=== PATIENT | female | born 1960 | race Caucasian/White ===

== ENCOUNTER 2020-11-28 21:12 | Inpatient (IN) | payer OTHER ==
[2020-11-28 22:52] LABS: Absolute Lymphocytes (CBC) 0.7 K/uL (0.7-4.9); Basophils % 0.2 % (0-1.3); Hematocrit 32.4 % (36.0-45.0); Lymphocytes % 3.1 % (15.3-44.8); RBC Red Blood Cell Count 3.56 M/uL (3.86-4.86)
[2020-11-28 23:00] LABS: Protime INR 1.37
[2020-11-28 23:15] LABS: ALT/SGPT 15 U/L (12-78); AST/SGOT 15 U/L (15-37); Alkaline Phosphatase 98 U/L (45-117); BUN Blood Urea Nitrogen 13 mg/dL (7-18); Bicarbonate 37 mmol/L (21-32); Bilirubin Direct 0.1 mg/dL (0-0.2); Bilirubin Total 0.3 mg/dL (0.2-1.0); Glucose Level 169 mg/dL (74-106); NT PRO-BNP 998 pg/mL (<125); Potassium 4.1 mmol/L (3.5-5.1); Protein, Total 7.7 g/dL (6.4-8.2); Sodium Level 133 mmol/L (136-145); Troponin (Emerg Dept Use Only) 0.02 ng/mL (0.0-0.045)
[2020-11-28] MEDS ORDERED: NA CHLORIDE 0.9% 1,000 ML ONE (23:44)
[2020-11-28] MEDS ORDERED: Levofloxacin 750mg IV 750 MG/150 ML BAG IV ONE (23:44)
[2020-11-28] MEDS ORDERED: CEFTRIAXONE/SWI 1gm 1 GM/10 ML SYR ONE (23:44)
[2020-11-28 23:53] LABS: Blood Morphology Comment NOT SEEN (NOT SEEN); Platelet Estimate INCR
[2020-11-29] MEDS ORDERED: LORazepam 2 MG/ML VIAL ONE (00:57)
[2020-11-29] MEDS ORDERED: ONDANSETRON 4 MG/2 ML VIAL ONE (00:57)
[2020-11-29] MEDS ORDERED: NA CHLORIDE 0.9% 500 ML ONE (01:23)
[2020-11-29] MEDS ORDERED: METOPROLOL TARTRATE 5 MG/5 ML INJ IV ONE (01:39)
[2020-11-29] MEDS ORDERED: DIGOXIN 0.25 MG/ML AMP ONE (01:39)
[2020-11-29] MEDS ORDERED: PIPER/TAZO/NS 3.375gm 3.375 GM/100 ML BAG ONE (01:40)
[2020-11-29] MEDS ORDERED: METHYLPREDNISOLONE 125 MG INJ ONE (02:12)
[2020-11-29] MEDS ORDERED: HEPARIN/D5W 25,000 UNIT/500 ML BAG IV ONE (02:12)
[2020-11-29] MEDS ORDERED: LEVALBUTEROL 1.25 MG/3 ML NEB ONE (02:12)
[2020-11-29 02:18] LABS: Urine Blood Negative (Negative); Urine Glucose Negative (Negative); Urine Protein 2+ (Negative); Urine Specific Gravity >=1.030 (1.005-1.030); Urine pH 5.5 (5.0-7.0)
[2020-11-29] MEDS ORDERED: RSI MEDICATION KIT IV ONE (03:19)
[2020-11-29] MEDS ORDERED: MIDAZOLAM HCL 2 MG/2 ML INJ ONE ×4 (03:21→05:29)
--- NOTE | 2020-11-29 03:37 | ER ---
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 Chief complaint:. ak2 Coronavirus screen: Client denies travel out of the [place] in the last 14 days. Ebola Screen: Patient negative for fever greater than or equal to 101.5 degrees Fahrenheit, and additional compatible Ebola Virus Disease symptoms Patient denies exposure to infectious person. Patient denies travel to an Ebola-affected area in the 21 days before illness onset. No symptoms or risks identified at this time. Initial Sepsis Screen: Does the patient meet any 2 criteria? No. Patient's initial sepsis screen is negative. Does the patient have a suspected source of infection? No. Patient's initial sepsis screen is negative. Risk Assessment: Do you want to hurt yourself or someone else? Patient reports no desire to harm self or others. Onset of symptoms was October 25, 2020. 21:23 Method Of Arrival: Ambulatory mn2 21:23 Acuity: FACUNDO 3 ak2 Triage Assessment: 21:26 General: Appears. ak2 Historical: - Allergies: 21:26 Niacin; ak2 - PMHx: 11/29 08:23 COPD; Depression; Spinal stenosis; Breast cancer in 90s; sv - PSHx: 08:23 Baljeet mastectomy; sv - Immunization history:: Adult Immunizations up to date. - Social history:: Smoking status: Patient reports the use of cigarette tobacco products, unknown amount. Screenin/09 22:49 Abuse screen: Denies threats or abuse. Nutritional screening: Had unintentional weight ap3 loss of 10 pounds or more. Tuberculosis screening: No symptoms or risk factors identified. Fall Risk None identified. Assessment: 22:46 General: Appears comfortable, Behavior is calm, cooperative, appropriate for age. Pain: ap3 Denies pain. Neuro: Level of Consciousness is awake, alert, obeys commands, Oriented to person, place, time, situation, Weakness. Cardiovascular: Capillary refill < 3 seconds. Cardiovascular: Denies chest pain, shortness of breath. Respiratory: Airway is patent Respiratory effort is even, unlabored, Breath sounds are clear bilaterally. GI: No signs and/or symptoms were reported involving the gastrointestinal system. : No signs and/or symptoms were reported regarding the genitourinary system. EENT: fluid filled sacks are present under both eyes. Musculoskeletal: Swelling present in right and left lower extremities 3+ pitting. 11/29 00:10 Reassessment: Patient and/or family updated on plan of care and expected duration. Pain ap3 level reassessed. Patient is alert, oriented x 3, equal unlabored respirations, skin warm/dry/pink. Patients son and daughter in law are at the bedside. 01:00 Reassessment: pt rhythm jumping from 110-140's, repeat EKG, given to Dr. Mancuso. em 01:45 Reassessment: pt placed on BIPAP. em 03:10 Reassessment: pt moved to room 3, pt will be intubated, Dr. Mancuso at bedside. em 04:00 Reassessment: Pt remains intubated with no s/s of pain or distress noted. appears to be jb4 resting peacefully on vent. Respirations are even and symmetrical BALJEET. 05:00 Reassessment: Patient appears in no apparent distress at this time. No changes from jb4 previously documented assessment. Patient and/or family updated on plan of care and expected duration. Pain level reassessed. Vital Signs: 11/28 21:23 BP 112 / 90; Pulse 55; Resp 20; Temp 97.9; Pulse Ox 95% on R/A; Weight 36.29 kg; Height ak2 5 ft. 4 in. (162.56 cm); 22:50 BP 116 / 71; Pulse 90; Pulse Ox 94% on 2 lpm NC; ap3 11/29 00:08 BP 97 / 54 LA Supine (auto/); Pulse 109; Resp 21; Pulse Ox 94% on 2 lpm NC; ap3 01:11 BP 103 / 70; Pulse 155; Resp 22; Pulse Ox 95% on 2 lpm NC; em 01:42 BP 114 / 79; Pulse 110; Resp 21; Pulse Ox 96% on 2 lpm NC; em 02:30 BP 135 / 83; Pulse 110; Resp 23; Pulse Ox 94% on BiPAP; em 03:14 BP 114 / 75; Pulse 118; Resp 18 A; Pulse Ox 98% on BVM; em 03:24 BP 80 / 59; Pulse 101; Resp 22 A; Pulse Ox 100% on ETT ambu; em 03:30 BP 99 / 67; Pulse 101; Resp 18 A; Pulse Ox 94% on ETT vent; em 04:30 BP 82 / 58; Pulse 87; Resp 24; Pulse Ox 100% on 40% FiO2 ETT vent; jb4 05:30 BP 84 / 59; Pulse 84; Resp 18; Pulse Ox 100% on 40% FiO2 ETT vent; jb4 / 21:23 Body Mass Index 13.73 (36.29 kg, 162.56 cm) ak2 ED Course: 11/28 21:15 Patient arrived in ED. cf2 21:26 Triage completed. ak2 22:06 Any Fuentes, MIKE is Primary Nurse. ap3 22:12 Conrado Valencia PA is PHCP. jr8 22:12 Kem Mancuso MD is Attending Physician. jr8 22:36 XRAY Chest (1 view) In Process Unspecified. EDMS 22:46 Inserted saline lock: 20 gauge in right antecubital area, using aseptic technique. ap3 Blood collected. 22:49 Arm band placed on right wrist. EKG completed in triage. Results shown to MD. ap3 22:50 Patient has correct armband on for positive identification. Bed in low position. Call ap3 light in reach. Side rails up X2. Adult w/ patient. hall monitor on. Pulse ox on. NIBP on. Door closed. Noise minimized. 23:10 Nurse Practitioner and/or Physician Bookkeeping Machine Mechanic to see patient. ap3 23:[address] via stretcher. ap3 23:38 Patient moved back from CT. ap3 23:44 CT Chest Wo Con In Process Unspecified. EDMS 23:53 Inserted saline lock: 20 gauge in left antecubital area, using aseptic technique. Blood ap3 collected. 11/29 02:14 Smith cath inserted, using sterile technique, 18 Fr., by nj, balloon inflated, to ds4 gravity drainage, urine specimen collected. returned clear yellow urine. Patient tolerated well. 03:24 Assisted provider with intubation using 7.5 mm ETT via oral route. ET tube secured at em 22cm at the lips. Set up intubation tray. Intubated by Kem Mancuso MD Placement verified by CO2 detector w/ + color change, auscultating bilateral breath sounds, CXR, Patient tolerated well. 03:31 Abiodun Lemon DO is Hospitalizing Provider. alberto 04:00 Chest Single View XRAY In Process Unspecified. EDMS 04:01 Chest Single View XRAY In Process Unspecified. EDMS 05:12 Patient admitted, IV remains in place. jb4 05:15 NGT: inserted 14 Fr. other OGT. ad5 06:00 Assisted provider with central line placement. Set up central line tray. Triple lumen jb4 line placed in right femoral. Line placed by Kem Mancuso MD Placement verified by blood return, Dressed with Tegaderm, Patient tolerated well. 08:14 pt accepted in transfer to [facility] by dr Jacob, admin approval given by ave Gaviria. Administered Medications: 11/28 23:54 Drug: Rocephin (cefTRIAXone) 1 grams Route: IV; Rate: calculated rate; Site: right ap3 antecubital; 11/29 00:30 Follow up: Response: No adverse reaction; IV Status: Completed infusion; IV Intake: 10mlem 11/28 23:54 Drug: LevaQUIN (levofloxacin) 750 mg Volume: 150 ml; Route: IVPB; Infused Over: 90 ap3 mins; Site: right antecubital; 11/29 01:30 Follow up: Response: No adverse reaction; IV Status: Completed infusion; IV Intake: em 150ml 11/28 23:54 Drug: NS 0.9% 1000 ml Route: IV; Rate: 1000 ml; Site: right antecubital; ap3 11/29 01:30 Follow up: IV Status: Completed infusion; IV Intake: 1000ml em 00:43 Drug: Zofran (Ondansetron) 4 mg Route: IVP; Site: right antecubital; ap3 00:50 Follow up: Response: No adverse reaction em 00:44 Drug: Ativan (LORazepam) 0.5 mg Route: IVP; Site: right antecubital; ap3 00:50 Follow up: Response: No adverse reaction; Marked relief of symptoms; Anxiety decreased em 01:32 Drug: Digoxin 0.5 mg Route: IVP; Site: right antecubital; em 01:45 Follow up: Response: No adverse reaction; Cardiac rhythm changed em 01:40 Drug: Zosyn (piperacillin-tazobactam) 3.375 grams Route: IVPB; Infused Over: 60 mins; em Site: right antecubital; 02:30 Follow up: Response: No adverse reaction; IV Status: Completed infusion; IV Intake: em 100ml 01:40 Drug: NS 0.9% 1000 ml Route: IV; Rate: 125 ml/hr; Site: right antecubital; em 01:40 Drug: Pepcid (famotidine) 20 mg Route: IVP; Site: right antecubital; em 02:15 Follow up: Response: No adverse reaction em 02:05 Drug: Heparin (HI-Bolus with thrombolytic) - HEParin 60 units/kg {Co-Signature: lc1 em (Genevieve Myers).} Route: IVP; Site: left antecubital; 02:14 Follow up: Response: No adverse reaction em 02:06 Drug: Heparin (HI Drip) 12 units/kg/hr - (HEParin 23510 units, D5W 500 ml) em {Co-Signature: lc1 (Genevievenoah Cannonn).} Route: IV; Rate: calculated rate; Site: left antecubital; 07:28 Follow up: Response: No adverse reaction; IV Status: Infusion continued upon admission jb4 02:14 Drug: SOLU-Medrol (methylPrednisoLONE) 125 mg Route: IVP; Site: left antecubital; em 02:30 Follow up: Response: No adverse reaction em 02:17 Drug: Xopenex (levalbuterol) 2.5 mg Route: Inhalation; em 02:18 Not Given (Physician Discretion): Lopressor (metoprolol TARTRATE)) 25 mg PO once em 02:18 Drug: AtroVENT (ipratropium) Aerosol 0.5 mg Route: Inhalation; em 02:19 Not Given (Physician Discretion): Lopressor (metoprolol) 2.5 mg IVP once; Hold for SBP em <100 or HR <60. 02:19 Not Given (Physician Discretion): Lopressor (metoprolol) 2.5 mg IVP once; Hold for SBP em <100 or HR <60. 03:15 Drug: Versed (midazolam) 4 mg Route: IVP; Site: right antecubital; em 04:00 Follow up: Response: No adverse reaction; Marked relief of symptoms jb4 03:16 Drug: Etomidate 15 mg Route: IVP; Site: right antecubital; em 03:40 Follow up: Response: No adverse reaction; Marked relief of symptoms jb4 03:25 Drug: NS 0.9% 500 ml Route: IV; Rate: bolus; Site: right antecubital; jb4 04:30 Follow up: Response: No adverse reaction; IV Status: Completed infusion; IV Intake: jb4 500ml 03:34 Drug: Versed (midazolam) 2 mg Route: IVP; Site: right antecubital; jb4 04:00 Follow up: Response: No adverse reaction; Marked relief of symptoms jb4 04:33 Drug: Meropenem 1 grams Route: IV; Rate: per protocol; Site: left wrist; jb4 05:40 Follow up: Response: No adverse reaction; IV Status: Completed infusion; IV Intake: em 100ml 05:15 Drug: Versed (midazolam) 2 mg Route: IVP; Site: right antecubital; ad5 05:45 Follow up: Response: No adverse reaction; Marked relief of symptoms jb4 06:00 Drug: vancoMYCIN 20 mg/kg Route: IVPB; Site: left wrist; jb4 Intake: 00:30 IV: 10ml; Total: 10ml. em 01:30 IV: 1000ml; Total: 1010ml. em 01:30 IV: 150ml; Total: 1160ml. em 02:30 IV: 100ml; Total: 1260ml. em 04:20 IV: 10ml; Total: 1270ml. jb4 04:30 IV: 500ml; Total: 1770ml. jb4 05:00 IV: 1000ml; Total: 2770ml. jb4 05:40 IV: 100ml; Total: 2870ml. em Outcome: 03:36 Decision to Hospitalize by Provider. alberto 05:11 Admitted to ER Hold. Please see [facility] for further documentation. jb4 05:11 Condition: improved 05:11 Discharge instructions given to family, Instructed on the need for admit, Demonstrated understanding of instructions. 09:50 Patient left the ED. hb Signatures: Dispatcher [employer] EDSherrie Morris Stephanie, RN Kem Fonseca MD MD cha Munoz, Edgar, RN RN em Roszak, Josh, PA PA jr8 Kamran Partida ds4 Drea Maldonado RN RN Aman Tucker RN RN jb4 Any Fuentes RN RN ap3 Kojo Mueller [facility] Dorian Woods Anthony [facility] Genevieve yMers 1
--- NOTE | 2020-11-29 03:37 | EDPHYS ---
Physician Documentation [facility] Name: Antonietta Fay Age: 59 yrs Sex: Female : 1960 Arrival Date: 11/28/2020 Time: 21:15 Bed 3 Private MD: ED Physician Kem Mancuso HPI: 11/29 00:45 This 59 yrs old Female presents to ER via Ambulatory with complaints of Feet jr8 Swelling, Leg Swelling, Eye Swelling, ARM SWELLING, Breathing Difficulty, BODY PAIN, General Weakness. 00:45 Severity of symptoms: At their worst the symptoms were moderate in the emergency jr8 department the symptoms are unchanged. The patient has not experienced similar symptoms in the past. The patient has been recently seen by a physician:. Patient stated she has been battling a lung infection for about 2 months. Stated that she was started on Zithromax first and now Augmentin. Stated that she still is not getting better and now having increased shortness of breath, swelling, and weakness. Has also lost about 25 pounds over the past month. Historical: - Allergies: 11/28 21:26 Niacin; ak2 - PMHx: 11/29 08:23 COPD; Depression; Spinal stenosis; Breast cancer in 90s; sv - PSHx: 08:23 Baljeet mastectomy; sv - Immunization history:: Adult Immunizations up to date. - Social history:: Smoking status: Patient reports the use of cigarette tobacco products, unknown amount. ROS: 00:45 Abdomen/GI: Negative for abdominal pain, nausea, vomiting, diarrhea, and constipation, jr8 Back: Negative for injury and pain, MS/Extremity: Negative for injury and deformity, Skin: Negative for injury, rash, and discoloration, Neuro: Negative for headache, weakness, numbness, tingling, and seizure. 00:45 Constitutional: Positive for weight loss. 00:45 Eyes: Positive for edema. 00:45 Cardiovascular: Positive for edema. 00:45 Respiratory: Positive for cough, dyspnea on exertion, shortness of breath, wheezing. Exam: 00:45 ENT: Nares patent. No nasal discharge, no septal abnormalities noted. Tympanic jr8 membranes are normal and external auditory canals are clear. Oropharynx with no redness, swelling, or masses, exudates, or evidence of obstruction, uvula midline. Mucous membranes moist. Neck: Trachea midline, no thyromegaly or masses palpated, and no cervical lymphadenopathy. Supple, full range of motion without nuchal rigidity, or vertebral point tenderness. No Meningismus. 00:45 Abdomen/GI: Soft, non-tender, with normal bowel sounds. No distension or tympany. No guarding or rebound. No evidence of tenderness throughout. Back: No spinal tenderness. No costovertebral tenderness. Full range of motion. Skin: Warm, dry with normal turgor. Normal color with no rashes, no lesions, and no evidence of cellulitis. MS/ Extremity: Pulses equal, no cyanosis. Neurovascular intact. Full, normal range of motion. Neuro: Awake and alert, GCS 15, oriented to person, place, time, and situation. Motor strength 5/5 in all extremities. Sensory grossly intact. 00:45 Eyes: Periorbital structures: swelling, that is mild, bilaterally, Pupils: equal, round, and reactive to light and accomodation, Extraocular movements: intact throughout, Conjunctiva: normal. 00:45 Cardiovascular: Rate: tachycardic, Rhythm: regular, Pulses: Pulses are 2+ in right radial artery and left radial artery. Heart sounds: normal, normal S1and S2, no S3 or S4, no murmur, no rub, no gallop, Edema: pedal edema, that is moderate. 00:45 Respiratory: mild respiratory distress is noted, Respirations: labored breathing, that is mild, pursed lip breathing, that is mild, tachypnea, that is mild, Breath sounds: decreased breath sounds, that are mild, are scattered, rhonchi, that are mild, are heard diffusely. 01:22 ECG was reviewed by the Attending Physician. alberto Vital Signs: 11/28 21:23 BP 112 / 90; Pulse 55; Resp 20; Temp 97.9; Pulse Ox 95% on R/A; Weight 36.29 kg; Height ak2 5 ft. 4 in. (162.56 cm); 22:50 BP 116 / 71; Pulse 90; Pulse Ox 94% on 2 lpm NC; ap3 11/29 00:08 BP 97 / 54 LA Supine (auto/); Pulse 109; Resp 21; Pulse Ox 94% on 2 lpm NC; ap3 01:11 BP 103 / 70; Pulse 155; Resp 22; Pulse Ox 95% on 2 lpm NC; em 01:42 BP 114 / 79; Pulse 110; Resp 21; Pulse Ox 96% on 2 lpm NC; em 02:30 BP 135 / 83; Pulse 110; Resp 23; Pulse Ox 94% on BiPAP; em 03:14 BP 114 / 75; Pulse 118; Resp 18 A; Pulse Ox 98% on BVM; em 03:24 BP 80 / 59; Pulse 101; Resp 22 A; Pulse Ox 100% on ETT ambu; em 03:30 BP 99 / 67; Pulse 101; Resp 18 A; Pulse Ox 94% on ETT vent; em 04:30 BP 82 / 58; Pulse 87; Resp 24; Pulse Ox 100% on 40% FiO2 ETT vent; jb4 05:30 BP 84 / 59; Pulse 84; Resp 18; Pulse Ox 100% on 40% FiO2 ETT vent; jb4 11/28 21:23 Body Mass Index 13.73 (36.29 kg, 162.56 cm) ak2 Procedures: 03:29 Intubation: Ventilated with 100% NRB prior to procedure. Intubated orally using # 3 alberto Stacia blade with 7.5 mm ETT. was successful on first attempt. Ventilated with Ambu bag. Cricoid pressure applied during procedure. Tube secured with ETT ward at right side of mouth measured 22 cm at lip. 06:02 Central Line: the site was prepped with Betadine, a triple lumen catheter was inserted, alberto in the right femoral vein, in 1 attempts. placement was verified, by blood return, the site was dressed with Tegaderm, using sterile technique, the patient tolerated the procedure, well. MDM: 11/28 22:12 Patient medically screened. jr8 11/29 00:45 Data reviewed: vital signs, nurses notes, lab test result(s), EKG, radiologic studies, jr CT scan, plain films. Data interpreted: Pulse oximetry: on 4L(s) per nasal canula, is 94 %. Interpretation: acceptable. Counseling: I had a detailed discussion with the patient and/or guardian regarding: the historical points, exam findings, and any diagnostic results supporting the discharge/admit diagnosis, lab results, radiology results, the need to transfer to another facility, for higher level of care. ED course: Patient has moderate pericardial effusion present on CT. Also has loculated effusion with what appears to be obstructive pneumonia secondary to possible lung mass. No Echo available at this time and no pulmonary to do vats procedure if needed. Will attempt to transfer patient for higher level of care. 01:00 Transition of care: After a detail discussion of the patient's case, care is jr8 transferred to Kem Mancuso MD. 11/28 22:12 Order name: Basic Metabolic Panel; Complete Time: 23:16 [facility] 11/28 22:12 Order name: CBC with Diff; Complete Time: 23:59 [facility] 11/28 22:12 Order name: LFT's; Complete Time: 23:16 [facility] 11/28 22:12 Order name: Magnesium; Complete Time: 23:16 [facility] 11/28 22:12 Order name: NT PRO-BNP; Complete Time: 23:16 [facility] 11/28 22:12 Order name: PT-INR; Complete Time: 23:15 [facility] 11/28 22:12 Order name: Troponin (emerg Dept Use Only); Complete Time: 23:16 [facility] 11/28 23:05 Order name: Manual Differential; Complete Time: 23:59 [facility] 11/28 23:16 Order name: Blood Culture Adult (2) [facility] 11/28 23:16 Order name: Procal; Complete Time: 01:17 [facility] 11/28 23:16 Order name: Lactate; Complete Time: 00:56 [facility] 11/29 01:19 Order name: ABG [facility] 11/29 01:21 Order name: TSH; Complete Time: 02:45 [facility] 11/29 01:46 Order name: SARS-COV-2 RT PCR; Complete Time: 02:45 [facility] 11/29 02:17 Order name: Urine Dipstick-Ancillary; Complete Time: 02:45 [facility] 11/29 02:20 Order name: Lactate Sepsis 2 HR Follow-up; Complete Time: 02:45 [facility] 11/29 03:21 Order name: ABG [facility] 11/29 03:22 Order name: ABG Arterial Blood Gas [facility] 11/29 03:28 Order name: Sputum Culture [facility] 11/29 05:38 Order name: ABG Arterial Blood Gas; Complete Time: 13:03 [facility] 11/29 05:55 Order name: CBC with Automated Diff; Complete Time: 13:03 [facility] 11/29 06:10 Order name: Comprehensive Metabolic Panel; Complete Time: 13:03 [facility] 11/29 06:10 Order name: Lipid Profile; Complete Time: 13:03 [facility] 11/29 06:10 Order name: C-Reactive Protein; Complete Time: 13:03 [facility] 11/29 06:10 Order name: T4 Free; Complete Time: 13:03 [facility] 11/29 06:10 Order name: Magnesium; Complete Time: 13:03 [facility] 11/29 06:10 Order name: Thyroid Stimulating Hormone; Complete Time: 13:03 [facility] 11/29 06:13 Order name: Procalcitonin; Complete Time: 13:03 [facility] 11/29 06:13 Order name: Ptt, Activated jb4 11/28 22:12 Order name: XRAY Chest (1 view); Complete Time: 13:03 [facility] 11/28 22:12 Order name: EKG; Complete Time: 22:13 [facility] 11/28 23:17 Order name: CT Chest Wo Con [facility] 11/29 01:49 Order name: BIPAP alberto 11/29 03:21 Order name: Chest Single View XRAY; Complete Time: 13:03 alberto 11/29 03:43 Order name: Chest Single View XRAY; Complete Time: 13:03 [facility] 11/29 06:54 Order name: PTT, Activated Partial Thromb; Complete Time: 13:03 [facility] 11/29 07:40 Order name: CBC Smear Scan; Complete Time: 13:03 [facility] 11/28 22:12 Order name: Cardiac monitoring; Complete Time: 23:10 [facility] 11/28 22:12 Order name: EKG - Nurse/Tech; Complete Time: 23:09 [facility] 11/28 22:12 Order name: IV Saline Lock; Complete Time: 22:46 [facility] 11/28 22:12 Order name: Labs collected and sent; Complete Time: 22:46 [facility] 11/28 22:12 Order name: O2 Per Protocol; Complete Time: 22:33 [facility] 11/28 22:12 Order name: O2 Sat Monitoring; Complete Time: 22:33 [facility] 11/28 22:25 Order name: Urine Dipstick-Ancillary (obtain specimen); Complete Time: 02:17 [facility] 11/29 01:53 Order name: Smith; Complete Time: 02:17 [facility] EC:22 Rate is 155 beats/min. Rhythm is irregularly irregular. QRS [place] is Normal. NC interval alberto is normal. QRS interval is normal. QT interval is normal. No Q waves. T waves are Normal. No ST changes noted. Clinical impression: Atrial Flutter and No evidence of ischemia. Interpreted by me. Reviewed by me. Administered Medications: 11/28 23:54 Drug: Rocephin (cefTRIAXone) 1 grams Route: IV; Rate: calculated rate; Site: right ap3 antecubital; 11/29 00:30 Follow up: Response: No adverse reaction; IV Status: Completed infusion; IV Intake: 10mlem 11/28 23:54 Drug: LevaQUIN (levofloxacin) 750 mg Volume: 150 ml; Route: IVPB; Infused Over: 90 ap3 mins; Site: right antecubital; 11/29 01:30 Follow up: Response: No adverse reaction; IV Status: Completed infusion; IV Intake: em 150ml 11/28 23:54 Drug: NS 0.9% 1000 ml Route: IV; Rate: 1000 ml; Site: right antecubital; ap3 11/29 01:30 Follow up: IV Status: Completed infusion; IV Intake: 1000ml em 00:43 Drug: Zofran (Ondansetron) 4 mg Route: IVP; Site: right antecubital; ap3 00:50 Follow up: Response: No adverse reaction em 00:44 Drug: Ativan (LORazepam) 0.5 mg Route: IVP; Site: right antecubital; ap3 00:50 Follow up: Response: No adverse reaction; Marked relief of symptoms; Anxiety decreased em 01:32 Drug: Digoxin 0.5 mg Route: IVP; Site: right antecubital; em 01:45 Follow up: Response: No adverse reaction; Cardiac rhythm changed em 01:40 Drug: Zosyn (piperacillin-tazobactam) 3.375 grams Route: IVPB; Infused Over: 60 mins; em Site: right antecubital; 02:30 Follow up: Response: No adverse reaction; IV Status: Completed infusion; IV Intake: em 100ml 01:40 Drug: NS 0.9% 1000 ml Route: IV; Rate: 125 ml/hr; Site: right antecubital; em 01:40 Drug: Pepcid (famotidine) 20 mg Route: IVP; Site: right antecubital; em 02:15 Follow up: Response: No adverse reaction em 02:05 Drug: Heparin (ND-Bolus with thrombolytic) - HEParin 60 units/kg {Co-Signature: lc1 em (Genevieve Myers).} Route: IVP; Site: left antecubital; 02:14 Follow up: Response: No adverse reaction em 02:06 Drug: Heparin (ND Drip) 12 units/kg/hr - (HEParin 83439 units, D5W 500 ml) em {Co-Signature: lc1 (Genevieve Myers).} Route: IV; Rate: calculated rate; Site: left antecubital; 07:28 Follow up: Response: No adverse reaction; IV Status: Infusion continued upon admission jb4 02:14 Drug: SOLU-Medrol (methylPrednisoLONE) 125 mg Route: IVP; Site: left antecubital; em 02:30 Follow up: Response: No adverse reaction em 02:17 Drug: Xopenex (levalbuterol) 2.5 mg Route: Inhalation; em 02:18 Not Given (Physician Discretion): Lopressor (metoprolol TARTRATE)) 25 mg PO once em 02:18 Drug: AtroVENT (ipratropium) Aerosol 0.5 mg Route: Inhalation; em 02:19 Not Given (Physician Discretion): Lopressor (metoprolol) 2.5 mg IVP once; Hold for SBP em <100 or HR <60. 02:19 Not Given (Physician Discretion): Lopressor (metoprolol) 2.5 mg IVP once; Hold for SBP em <100 or HR <60. 03:15 Drug: Versed (midazolam) 4 mg Route: IVP; Site: right antecubital; em 04:00 Follow up: Response: No adverse reaction; Marked relief of symptoms jb4 03:16 Drug: Etomidate 15 mg Route: IVP; Site: right antecubital; em 03:40 Follow up: Response: No adverse reaction; Marked relief of symptoms jb4 03:25 Drug: NS 0.9% 500 ml Route: IV; Rate: bolus; Site: right antecubital; jb4 04:30 Follow up: Response: No adverse reaction; IV Status: Completed infusion; IV Intake: jb4 500ml 03:34 Drug: Versed (midazolam) 2 mg Route: IVP; Site: right antecubital; jb4 04:00 Follow up: Response: No adverse reaction; Marked relief of symptoms jb4 04:33 Drug: Meropenem 1 grams Route: IV; Rate: per protocol; Site: left wrist; jb4 05:40 Follow up: Response: No adverse reaction; IV Status: Completed infusion; IV Intake: em 100ml 05:15 Drug: Versed (midazolam) 2 mg Route: IVP; Site: right antecubital; ad5 05:45 Follow up: Response: No adverse reaction; Marked relief of symptoms jb4 06:00 Drug: vancoMYCIN 20 mg/kg Route: IVPB; Site: left wrist; jb4 Disposition: 03:28 Co-signature as Attending Physician, Kem Mancuso MD I agree with the assessment and alberto plan of care. Disposition: 11/29/20 03:36 Hospitalization ordered by Abiodun Lemon for Inpatient Admission. 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 - Bed requested for [facility] ER HOLD. - Status is Inpatient Admission. hb - Condition is Serious. - Problem is new. - Symptoms have improved. Signatures: Dispatcher [employer] [facility] Maddie Bernard, Kem Fonseca RN, MD MD cha Munoz, Edgar RN MIKE Conrado Valencia PA PA jr8 Ciaran Trevino, MANAGEMENT TRAINEE-C MANAGEMENT TRAINEE-Cla1 Alicja Renteria RN RN tl1 Drea Maldonado RN RN Aman Tucker RN RN jb4 Prokisch, Amanda RN MIKE melendez3 Dorian Woods Anthony ak2 Genevieve Myers lc1 Corrections: (The following items were deleted from the chart) 11/28 23:39 23:23 CORONAVIRUS+MR.LAB.ILIANAZ ordered. [facility] 11/29 04:26 03:36 Hospitalization Ordered by Abiodun Lemon DO for Inpatient Admission. 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 Bed requested for Intensive Care Unit. Status is Inpatient Admission. Condition is Serious. Problem is new. Symptoms have improved. alberto 09:50 04:26 11/29/2020 03:36 Hospitalization Ordered by Abiodun Lemon DO for Inpatient hb Admission. 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 Bed requested for [facility] ER HOLD. Status is Inpatient Admission. Condition is Serious. Problem is new. Symptoms have improved. tl1
[2020-11-29] MEDS ORDERED: NA CHLORIDE 0.9% 1,000 ML ONE ×2 (03:38→09:27)
[2020-11-29] MEDS ORDERED: NA CHLORIDE 0.9% 50 ML ONE (04:00)
[2020-11-29 04:14] LABS: Blood Gas Oxyhemoglobin 83.4 % (94-97)
[2020-11-29] MEDS ORDERED: NA CHLORIDE 0.9% 250 ML ONE (04:15)
[2020-11-29] MEDS ORDERED: VANCOMYCIN 1 GM/VIAL ONE (04:15)
[2020-11-29] MEDS ORDERED: MEROPENEM ONE (04:23)
--- NOTE | 2020-11-29 04:49 | P.HP ---
Certification for Inpatient Patient admitted to: Inpatient With expected LOS: >2 Midnights Patient will require the following post-hospital care: None Practitioner: I am a practitioner with admitting privileges, knowledge of patient current condition, hospital course, and medical plan of care. Services: Services provided to patient in accordance with Admission requirements found in Title 42 Section 412.3 of the Code of Federal Regulations Patient History Date of Service: 11/29/20 Primary Care Provider: None Reason for admission: Respiratory failure History of Present Illness: 59-year-old female with history of suspected COPD, allergies, depression, spinal stenosis presents emergency department for generalized we akness, swelling in the extremities, shortness of breath. Patient also mildly confused upon arrival to the emergency department, patient evaluated in the emergency department, initial labs significant for white blood cell count 22.5 with left shift hemoglobin 10.7 hematocrit 32.5, platelets 442 2% bands chemistry demonstrates sodium 133 chloride 93, CO2 37 creatinine 0.47 glucose 169 initial lactic acid 2.6 down to 1.4 after fluids pro calcitonin 5.11. Urinalysis negative for signs of infection. Chest x-ray done demonstrates suspected postobstructive right-sided pneumonia, CT chest performed went right suprahilar consolidation with probable right hilar and superior mediastinal adenopathy which could be infectious or neoplastic and is not visualized well due to lack of IV contrast, neoplasms favored given the presence of multiple left lung pulmonary nodules measuring up to 8 mm. Cystic change/cavitation throughout the right upper lung which favor pulmonary necrosis. Large right ple ural effusion with areas of loculation, severe emphysema present throughout the many lungs, moderate sized pericardial effusion also noted. ABG was obtained which demonstrated hypercapnia with CO2 of 100 in mild acidosis with pH 7.19, patient was placed on BiPAP but repeat ABG demonstrated elevation of CA to the 114 and patient was lethargic, confused. Patient was intubated for acute hypoxic, hypercapnic respiratory failure. Transfer was initiated, [facility], [facility], [facility], [facility] all declined due to ICU saturation. Attempted transferred to all satellite facilities related to above hospital systems and was declined again due to capacity. Case was then discussed with pulmonology recommended initiation of IV antibiotics with vancomycin/meropenem and admission to the intensive care unit for further evaluation and management. When I saw the patient in the emergency department she was intubated, on the ventilator and sedated. Son and daughter at bedside reports patient had been feeling unwell over the course of the last 4 months and had recently moved back from [place], has not seen a physician in only does virtual doctor visits, was prescribed medication for pneumonia in the past month or so but again was not ever seen in person. Patient family does report patient smokes about 2 packs of cigarettes daily for the past 40 years. Allergies niacin Allergy (Verified 11/29/20 05:12) Hives - Past Medical/Surgical History -: COPD -: Depression -: Spinal stenosis -: Breast cancer in the 90s -: Bilateral mastectomy Psychosocial/ Personal History: Patient is disabled secondary to spinal stenosis, lives alone - Family History Father -: Other (see notes) (Lupus) Sister Notes: Lupus - Social History Smoking Status: Heavy Tobacco smoker (>10 cigarettes/day) Smoking therapy provided: Yes Alcohol use: No CD- Drugs: No Caffeine use: Yes Place of Residence: Home Review of Systems is unable to be obtained Physical Examination - Physical Exam General: Unresponsive, Other (Intubated-on ventilator-sedated) HEENT: Atraumatic, Normocephalic, Other (Some periorbital edema noted) Neck: Supple Respiratory: Crackles/rales (Right-sided), Rhonchi/gurgles Cardiovascular: No edema, Normal S1 S2, No murmurs, Irregular heart rate/rhythm (AFib, rate controlled) Capillary refill: <2 Seconds Gastrointestinal: Normal bowel sounds, No tenderness, No masses, No rebound Musculoskeletal: No contractures, No erythema, No tenderness Integumentary: No tenderness/swelling, No erythema, No warmth Neurological: Other (Intubated, sedated, unresponsive on ventilator at this time, prior to admission patient was awake, alert, moving all 4 extremities and following commands) - Studies Laboratory Data (last 24 hrs) 11/28/20 22:42: PT 15.8 H, INR 1.37 11/28/20 22:42: WBC 22.50 H*, Hgb 10.7 L, Hct 32.4 L, Plt Count 442 H 11/28/20 22:42: Sodium 133 L, Potassium 4.1, BUN 13, Creatinine 0.47 L, Glucose 169 H, Magnesium 2.0, Total Bilirubin 0.3, AST 15, ALT 15, Alkaline Phosphatase 98 Assessment and Plan - Plan Assessment Acute hypoxic hypercapnic respiratory failure secondary to large right loculated pleural effusion and cystic/cavitational changes favoring pulmonary necrosis- suspected malignancy with history of COPD and heavy tobacco abuse New onset atrial fibrillation/flutter Moderate pericardial effusion Plan Acute hypoxic hypercapnic respiratory failure secondary to large right loculated pleural effusion and cystic/cavitational changes favoring pulmonary necrosis- suspected malignancy with history of COPD and heavy tobacco abuse: Have attempted transferred to all tertiary centers within the area, all have declined due to lack of ICU capacity, this was discussed at length with patient's daughter and son who are present in exam room and understanding of current situation. Will admit to the ICU, case was discussed with pulmonology will continue with IV meropenem/vancomycin, ventilator protocol, repeat ABG with morning lab. Continue with heparin for DVT prophylaxis, patient without any known history of pulmonary malignancy but this is likely given patient's heavy smoking of 2 packs per day over the course of the last [address] findings. Appreciate further input from pulmonology, continue heparin drip for DVT prophylaxis. New onset atrial fibrillation/flutter: Patient initiated on heparin drip given new onset atrial fibrillation/flutter that occurred in the emergency department, patient was given metoprolol/digoxin in the emergency department and is in paroxysmal atrial fibrillation but is rate controlled at this time. Cardiology consulted for additional assistance in managing atrial fibrillation/flutter in addition to the moderate pericardial effusion. Echocardiogram/thyroid panel ordered. Moderate pericardial effusion: Echocardiogram ordered, appreciate further input from cardiology, likely malignant in nature. Discharge Plan: Home Plan to discharge in: Greater than 2 days - Advance Directives Does patient have a Living Will: No Does patient have a Durable POA for Healthcare: No - Code Status/Comfort Care Code Status Assessed: Yes (Full code) Critical Care: No Time Spent Managing Pts Care (In Minutes): 55
[2020-11-29] MEDS ORDERED: FENTANYL CITR 100 MCG/2 ML IV PRN (05:13)
[2020-11-29] MEDS ORDERED: NA CHLORIDE 0.9% 250 ML IV PRN (05:13)
[2020-11-29] MEDS ORDERED: HALOPERIDOL LACT 5 MG/ML INJ IV PRN (05:13)
[2020-11-29] MEDS ORDERED: HEPARIN/D5W 25,000 UNIT/500 ML BAG IV SCH (05:13)
[2020-11-29] MEDS ORDERED: NA CHLORIDE 0.9% 1,000 ML IV SCH (05:13)
[2020-11-29] MEDS ORDERED: ONDANSETRON 4 MG/2 ML VIAL IV PRN (05:13)
[2020-11-29] MEDS ORDERED: ACETAMINOPHEN 650MG/RECT SUPP PR PRN (05:13)
[2020-11-29] MEDS ORDERED: MIDAZOLAM HCL 100 MG in NA CHLORIDE 0.9% 80 ML IV PRN (05:13)
[2020-11-29] MEDS ORDERED: NOREPINEPHRINE 4 MG in D5W 250 ML IV PRN (05:13)
[2020-11-29] MEDS ORDERED: MIDAZOLAM HCL 2 MG/2 ML INJ IV PRN (05:13)
[2020-11-29 05:37] LABS: Arterial Blood Carboxyhemoglob 7.3 % (0-1.5); Blood Gas Oxyhemoglobin 87.8 % (94-97); Blood O2 Saturation 95.8 % (92-98.5)
[2020-11-29 05:46] LABS: Absolute Lymphocytes (CBC) 0.3 K/uL (0.7-4.9); Basophils % 0.3 % (0-1.3); Hematocrit 27.9 % (36.0-45.0); Lymphocytes % 1.7 % (15.3-44.8); MPV 7.1 fL (7.6-11.3); RBC Red Blood Cell Count 2.99 M/uL (3.86-4.86)
[2020-11-29 06:10] LABS: ALT/SGPT 14 U/L (12-78); AST/SGOT 14 U/L (15-37); Albumin 1.6 g/dL (3.4-5.0); Alkaline Phosphatase 83 U/L (45-117); BUN Blood Urea Nitrogen 13 mg/dL (7-18); Bicarbonate 34 mmol/L (21-32); Bilirubin Total 0.2 mg/dL (0.2-1.0); Glucose Level 133 mg/dL (74-106); HDL Cholesterol 31 mg/dL (40-60); LDL Cholesterol, Calculated 49 (<130); Potassium 4.2 mmol/L (3.5-5.1); Protein, Total 6.9 g/dL (6.4-8.2); Sodium Level 136 mmol/L (136-145)
--- NOTE | 2020-11-29 06:27 | P.PN ---
Subjective Date of Service: 11/29/20 Primary Care Provider: None Chief Complaint: Respiratory failure Subjective: Other (patient remains intubated and sedated. Current BP 88/63, MAP 72) Physical Examination - Physical Exam General: Other - Studies Laboratory Data (last 24 hrs) 11/28/20 22:42: PT 15.8 H, INR 1.37 11/28/20 22:42: WBC 22.50 H*, Hgb 10.7 L, Hct 32.4 L, Plt Count 442 H 11/28/20 22:42: Sodium 133 L, Potassium 4.1, BUN 13, Creatinine 0.47 L, Glucose 169 H, Magnesium 2.0, Total Bilirubin 0.3, AST 15, ALT 15, Alkaline Phosphatase 98 Assessment & Plan Discharge Plan: Home - Code Status/Comfort Care Code Status Assessed: Yes (Patient is full code) Physician Review Additional Text: Physical exam: Patient is intubated ad sedated. Appearance: Patient appears dissheveled. Malnourished. Head: Atraumatic. Heart: Currently NSR with rate of 80. Lungs: Crackles to the bases and anteriorly. AB: Soft, No ascites. Normal bowel sounds. EXT/skin: No significant edema to the lower ext. Muscle wasting throughout. Thin appearing individual. Impression: Fatigue, dyspnea secondary to Acute hypoxic hypercapnic respiratory failure secondary to large right loculated pleural effusion and cystic/cavitational changes favoring pulmonary necrosis-suspected malignancy with history of COPD and heavy tobacco abuse New onset atrial fibrillation/flutter Moderate pericardial effusion Anemia of chronic disease. Plan Acute hypoxic hypercapnic respiratory failure secondary to large right loculated pleural effusion, right suprahilar consolidation with right hilar/superior mediastinal adenopathy, cystic change/cavitation throughout the right upper lung favoring pulmonary necrosis, severe emphysema throughout, and moderate pericardial fusion likely related to underlying malignancy suspected malignancy with history of COPD and heavy tobacco abuse: Multiple attempts to tertiary care centers for upper level care including CV surgery, Critical Care, pulmonology and Cardiology attempted. Spoke with [facility]'s transfer director-Dr. Hicks. She will help prioritize transfer. Patient admitted to our facility for stability. Continue to monitor the patient closely. Patient currently on IV meropenem, vancomycin. Cultures obtained. Continue vent protocol. Respiratory consulted to further assist. Pulmonology is aware of the patient. Await further recommendation. Patient also had new onset atrial fibrillation/flutter. Patient was initially given digoxin and IV metoprolol in the emergency room. This appears stable. Patient on heparin drip at this time. Patient will require vasopressor-Levophed if blood pressure is low Sys BP less than 90 and MAP less than 65. Will continue monitor the patient closely. Anticipate possible transfer as early as today or tomorrow pending ICU hospital bed in [place]. Assistance for transfer with Dr. Hicks has been established. She will prioritize transfer. New onset atrial fibrillation/flutter: Patient initially given IV digoxin and metoprolol in the emergency room. Rate now controlled. Patient on heparin drip at this time. Protocol in place. Will obtain echocardiogram. Cardiology consulted to further assist. Moderate pericardial effusion: Will obtain echocardiogram to further evaluate. Patient will likely require pericardial window. Anemia of chronic disease: Will monitor hemoglobin. Patient now on heparin drip. Will obtain iron and B12 studies. DVT prophylaxis: Currently on heparin drip due to atrial fibrillation/a flutter Code status: This was addressed by mid-level provider earlier this morning. Patient remains full code. Advanced care planning: Spoke with transfer director-Dr. Hicks. She is to help with transfer to [place]. She will help prior twice transfer. Patient currently admitted for stability at this time. Current medications: IV vancomycin, IV meropenem, heparin drip,+/-Levophed, IV Pepcid, NS at 100 cc/hr. Time Spent Managing Pts Care (In Minutes): 55
[2020-11-29] MEDS ORDERED: VANCOMYCIN 0.25 GM in NA CHLORIDE 0.9% 100 ML IVPB ONE (06:30)
[2020-11-29] MEDS ORDERED: NOREPINEPHRINE 4mg/D5W 250mL 4 MG/250 ML BAG IV ONE (06:46)
[2020-11-29 07:26] VITALS: BMI 14.6
[2020-11-29 07:40] LABS: Blood Morphology Comment NOT SEEN (NOT SEEN); Platelet Estimate ADEQ; White Blood Cell Scan OK (OK)
[2020-11-29 08:16] VITALS: O2SAT 100
[2020-11-29] MEDS ORDERED: FAMOTIDINE 20 MG/2 ML VIAL IV ONE (08:48)
--- NOTE | 2020-11-29 08:55 | P.CNS ---
Date of Consult: 11/29/20 Primary Care Provider: None Chief Complaint: Respiratory failure, shock History of Present Illness: Patient is 67 years of age admitted with respiratory distress multiple medical problems the came in with respiratory failure shock upper lobe necrotizing pneumonia as currently on Levophed on a ventilator broad-spectrum antibiotics alert Allergies niacin Allergy (Verified 11/29/20 05:12) Hives - Past Medical/Surgical History -: COPD -: Depression -: Spinal stenosis -: Breast cancer in the 90s -: Bilateral mastectomy Psychosocial/ Personal History: Patient is disabled secondary to spinal stenosis, lives alone - Family History Father Medical History: Other (see notes) (Lupus) Sister Notes: Lupus - Social History Alcohol use: No CD- Drugs: No Caffeine use: Yes Place of Residence: Home Review of Systems is unable to be obtained Physical Examination Temp Pulse Resp BP Pulse Ox 96.1 F L 85 14 113/78 100 11/29/20 08:00 11/29/20 08:00 11/29/20 08:00 11/29/20 08:00 11/29/20 08:00 General: Alert Respiratory: Other (Bronchial breathing in the right lung) Cardiovascular: No edema, Regular rate/rhythm Gastrointestinal: Normal bowel sounds, Soft and benign Laboratory Data (last 24 hrs) 11/28/20 22:42: PT 15.8 H, INR 1.37 11/28/20 22:42: WBC 22.50 H*, Hgb 10.7 L, Hct 32.4 L, Plt Count 442 H 11/28/20 22:42: Sodium 133 L, Potassium 4.1, BUN 13, Creatinine 0.47 L, Glucose 169 H, Magnesium 2.0, Total Bilirubin 0.3, AST 15, ALT 15, Alkaline Phosphatase 98 - Problems (1) Shock Current Visit: Yes Status: Acute Plan: Patient is 59 years of age admitted with respiratory failure shock the right upper lobe Chris ties in pneumonia mild pericardial effusion most likely pneumococcal for Staph agree with vancomycin meropenem fluid boluses patient is on only 40% FiO2 pro calcitonin is very elevated sputum cultures blood cultures white count elevated patient was hypoxic hypercapnic probably has underlying COPD had IV levofloxacin transfer to another facility was arranged by the hospitalist
[2020-11-29] MEDS ORDERED: NICOTINE 21 MG/PAT TD SCH (09:00)
[2020-11-29] MEDS ORDERED: Meropenem 1000 MG/VIAL IV SCH (09:00)
[2020-11-29] MEDS ORDERED: Levofloxacin500mg IV 500 MG/100 ML BAG IV SCH (09:00)
[2020-11-29] MEDS ORDERED: ENOXAPARIN 40 MG/0.4 ML SQ SCH (09:00)
[2020-11-29] MEDS ORDERED: VANCOMYCIN/NS 1 gm 1 GM/250 ML BAG IVPB SCH (09:00)
[2020-11-29] MEDS ORDERED: FAMOTIDINE 20 MG/2 ML VIAL IV SCH (09:00)
--- NOTE | 2020-11-29 09:19 | RAD REPORT ---
EXAM DESCRIPTION: RAD - Chest Single View - 11/29/2020 4:00 am CLINICAL HISTORY: post intubation;Cough;COPD Chest pain. COMPARISON: Chest Single View dated 11/28/2020 FINDINGS: Portable technique limits examination quality. Tip of the endotracheal tube is 1-2 cm above the level of the superior aortic arch. Extensive opacifi cation of the right upper lobe is present with right pleural effusion. The heart is normal in size.
--- NOTE | 2020-11-29 09:19 | RAD REPORT ---
EXAM DESCRIPTION: RAD - Chest Single View - 11/29/2020 4:02 am CLINICAL HISTORY: post intubation, #2 Chest pain. COMPARISON: Chest Single View dated 11/29/2020; Chest Single View dated 11/28/2020 FINDINGS: Portable technique limits examination quality. Tip of the ET tube is above the ning at the level of the superior aortic arch. Large area of airspa ce consolidation is seen involving the right upper lung. Heart size is upper limit of normal.
[2020-11-29 09:27] VITALS: BP 112/75; TEMP 96.9
--- NOTE | 2020-11-29 09:35 | RAD REPORT ---
EXAM DESCRIPTION: RAD - Chest Single View - 11/28/2020 10:41 pm CLINICAL HISTORY: DYSPNEA Chest pain. COMPARISON: Thorax Wo Con dated 11/28/2020 FINDINGS: Portable technique limits examination quality. A large area of lung consolidation with internal cavitation noted involving right upper lobe. A right pleural effusion is also present. The heart is normal in size. No displaced fractures.
[2020-11-29] MEDS ORDERED: ROCURONIUM 50 MG/5 ML VIAL IV ONE (09:50)
[2020-11-29] MEDS ORDERED: ETOMIDATE 20 MG/10 ML VIAL IV ONE (09:50)
[2020-11-29] MEDS ORDERED: Meropenem 1,000 MG in NA CHLORIDE 0.9% 100 ML IV SCH ×2 (11:00→13:00)
--- NOTE | 2020-11-29 12:27 | CON ---
Date of Consultation: 11/29/2020 History Of Present Illness: Ms. Kaur is a 59-year-old woman with history of COPD, depression, spin al stenosis, bilateral mastectomy for breast cancer in the 90s, who came in with diffuse swelling in the legs, face, arms with shortness of breath, generalized weakness and body pain. She was noted lat er after the admission to the emergency room to be hypotensive, hypoxic requiring intubation. By the time I saw her, she was already on Levophed and heparin drip. Review of Systems: Negative. Social History: Negative. Family History: Noncontributory. Allergies: HER ALLERGIES INCLUDE NIACIN. Medications: At home are unknown. Physical Examination: General: When I saw her, she was intubated. Vital Signs: Blood pressure was 112/75 with pulse of 94. She was afebrile. She was in sinus rhythm at a rate of 90, 100% mechanical ventilation. Last blood gas was PO2 of 81, pCO2 of 62, pH of 7.35. HEENT: Negative. Neck: Supple. No bruit. Chest: Revealed diffuse crackles. Cardiac: Revealed regular rhythm and rate without any murmurs, gallops, or rubs. Abdomen: Benign. Extremities: Revealed no clubbing, cyanosis or edema. Diagnostic Data: Creatinine was 0.43. White count was 13,000, hemoglobin was 8.8. Her platelet cou nt was 378,000. PT and INR were normal. Her BNP was 998. Her C-reactive protein was 75. Troponin was negative. Procalcitonin was 5.08. She was COVID negative. Chest x-ray shows a large area of moisés ng consolidation with internal cavitation in the right upper lobe, right pleural effusion. Impression And Plan: 1.Respiratory failure that is acute secondary to combination of necrotizing pneumonia as well as chr onic obstructive pulmonary disease. I do not think we are dealing with any acute coronary syndrome. 2.Shock secondary to sepsis secondary to pneumonia. 3.Chronic obstructive pulmonary disease. 4.Depression. 5.Spinal stenosis. 6.History of breast cancer, status post bilateral mastectomy. I agree with her present regimen as being dictated by Dr. Lemon and Dr. Mo. I think it will b e reasonable to do an echocardiogram to make sure she does not have a pericardial effusion or cardiom yopathy. I will follow her along with you. NB/MODL Voice ID: [id number] Report ID: [id number]
--- NOTE | 2020-11-29 12:47 | P.DS ---
Admission Date: 11/29/20 Discharge Date: 11/29/20 Primary Care Provider: None Disposition: TRANSFER TO [facility] Discharge Condition: CRITICAL Reason for Admission: Respiratory failure, shock Consultations: Pulmonary-Dr. Mo Cardiology-Dr. Stone Procedures: COVID: Negative CT scan: CT scan showing large right loculated pleural effusion, cystic/cavitary changes favoring pulmonary necrosis and moderate pericardial effusion. Medical Problem List: Fatigue, dyspnea secondary to Acute hypoxic hypercapnic respiratory failure secondary to large right loculated pleural effusion and cystic/cavitational changes favoring pulmonary necrosis-suspected malignancy with history of COPD and heavy tobacco abuse Septic shock secondary to above New onset atrial fibrillation/flutter Moderate pericardial effusion Anemia of chronic disease. Brief History of Present Illness: 59-year-old female with history of suspected COPD, allergies, depression, spinal stenosis presents emergency department for generalized weakness, swelling in the extremities, shortness of breath. Patient also mildly confused upon arrival to the emergency department, patient evaluated in the emergency department, initial labs significant for white blood cell count 22.5 with left shift hemoglobin 10.7 hematocrit 32.5, platelets 442 2% bands chemistry demonstrates sodium 133 chloride 93, CO2 37 creatinine 0.47 glucose 169 initial lactic acid 2.6 down to 1.4 after fluids pro calcitonin 5.11. Urinalysis negative for signs of infection. Chest x-ray done demonstrates suspected postobstructive right-sided pneumonia, CT chest performed went right suprahilar consolidation with probable right hilar and superior mediastinal adenopathy which could be infectious or neoplastic and is not visualized well due to lack of IV contrast, neoplasms favored given the presence of multiple left lung pulmonary nodules measuring up to 8 mm. Cystic change/cavitation throughout the right upper lung which favor pulmonary necrosis. Large right pleural effusion with areas of loculation, severe emphysema present throughout the many lungs, moderate sized pericardial effusion also noted. ABG was obtained which demonstrated hypercapnia with CO2 of 100 in mild acidosis with pH 7.19, patient was placed on BiPAP but repeat ABG demonstrated elevation of CA to the 114 and patient was lethargic, confused. Patient was intubated for acute hypoxic, hypercapnic respiratory failure. Transfer was initiated, [facility], [facility], [facility], [facility], [facility] all declined due to ICU saturation. Attempted transferred to all satellite facilities related to above hospital systems and was declined again due to capacity. Case was then discussed with pulmonology recommended initiation of IV antibiotics with vancomycin/meropenem and admission to the intensive care unit for further evaluation and management. Hospital Course: Patient presented with fatigue, dyspnea secondary to Acute hypoxic hypercapnic respiratory failure secondary to large right loculated pleural effusion, right suprahilar consolidation with right hilar/superior mediastinal adenopathy, cystic change/cavitation throughout the right upper lung favoring pulmonary necrosis, severe emphysema throughout, and moderate pericardial fusion likely related to underlying malignancy with history of COPD and heavy tobacco abuse. In the ER patient also had new onset atrial fibrillation a flutter. Patient was given IV digoxin and metoprolol with improvement. Patient now in normal sinus rhythm. Patient was started on IV antibiotic therapy. Levophed also started for suspected septic shock. Patient was to be transferred to [facility] for CV evaluation and critical care considering findings on CT scan and moderate pericardial effusion on CT scan. I was able to get help through the transfer center for transfer. Patient was eventually accepted to go to [facility] for further care. Case discussed in detail with child life specialist. He agrees with the plan to transfer. Patient was stable for transfer. Patient remains on IV vancomycin, meropenem, heparin drip, Levophed, IV fluids and Pepcid. Patient remains intubated and sedated. Continue with vent protocol until transfer is made. Vital Signs/Physical Exam: Temp Pulse Resp BP Pulse Ox 96.9 F 94 H 13 112/75 98 11/29/20 09:15 11/29/20 09:15 11/29/20 09:15 11/29/20 09:15 11/29/20 09:15 General: Other (Patient remains intubated and sedated.) Respiratory: Crackles/rales (Bilateral) Cardiovascular: Normal pulses, Regular rate/rhythm Gastrointestinal: Normal bowel sounds Musculoskeletal: No tenderness, No warmth Integumentary: No tenderness/swelling Neurological: Other (Patient remains intubated and sedated) Laboratory Data at Discharge: WBC 15.20 K/uL (4.3-10.9) H D 11/29/20 05:30 Hgb 8.8 g/dL (12.0-15.0) L 11/29/20 05:30 Hct 27.9 % (36.0-45.0) L 11/29/20 05:30 Plt Count 378 K/uL (152-406) 11/29/20 05:30 PT 15.8 SECONDS (9.5-12.5) H 11/28/20 22:42 INR 1.37 11/28/20 22:42 APTT Cancelled 11/29/20 11:40 Sodium 136 mmol/L (136-145) 11/29/20 05:30 Potassium 4.2 mmol/L (3.5-5.1) 11/29/20 05:30 BUN 13 mg/dL (7-18) 11/29/20 05:30 Creatinine 0.43 mg/dL (0.55-1.3) L 11/29/20 05:30 Glucose 133 mg/dL (74-106) H 11/29/20 05:30 Magnesium 2.0 mg/dL (1.8-2.4) 11/29/20 05:30 Total Bilirubin 0.2 mg/dL (0.2-1.0) 11/29/20 05:30 AST 14 U/L (15-37) L 11/29/20 05:30 ALT 14 U/L (12-78) 11/29/20 05:30 Alkaline Phosphatase 83 U/L (45-117) 11/29/20 05:30 Triglycerides 59 mg/dL (<150) 11/29/20 05:30 Cholesterol 92 mg/dL (<200) 11/29/20 05:30 HDL Cholesterol 31 mg/dL (40-60) L 11/29/20 05:30 Cholesterol/HDL Ratio 2.97 11/29/20 05:30 Physician Discharge Instructions: Patient transferred to [facility] for high-level care. Followup: Tracy Rehman MD [Primary Care Provider] - Time spent managing pt's care (in minutes): 55
--- NOTE | 2020-11-29 15:44 | RAD REPORT ---
EXAM DESCRIPTION: CT Chest COMPARISON: None. CLINICAL HISTORY: [facility] MAIN dyspnea TECHNIQUE: CT images through the chest without IV contrast. Multiplanar reformats. Automated expos ure control was utilized on this examination as a dose lowering technique. FINDINGS: CT CHEST Heart and mediastinum: Normal heart size with moderate sized pericardial effusion measuring up to 1.1 cm in thickness. Probable enlarged lymph node in the upper mediastinum measuring 2.4 cm short axis ( series 201 image 23). Thyroid gland: Visualized portions are normal. Lungs: Severe centrilobular emphysema. Right suprahilar lung mass or consolidation with postobstructi ve cystic or necrotic change in the right middle and right upper lobe. Scar is present in the right l ower lobe. Scattered pulmonary nodules are present throughout the left lung. The largest measures 8 m m in the left lower lobe on series 201 image 50. A chronically calcified lesion is noted in the later al left upper lobe. Airways: There are secretions in the right mainstem bronchus. Pleura: No definite pneumothorax. A large right pleural effusion is present with 4.4 cm right apical loculation. Subphrenic structures: Within normal limits. Musculoskeletal and soft tissues: Within normal limits for age. IMPRESSION: 1. Right suprahilar consolidation with probable right hilar and superior mediastinal johanna nopathy. This could be infectious or neoplastic and is not well visualized due to lack of IV contrast . Neoplasm is favored given the presence of multiple left lung pulmonary nodules measuring up to 8 mm . There is cystic change/cavitation throughout the right upper lung which favors pulmonary necrosis. Large right pleural effusion with areas of loculation. Severe emphysema is present in the remaining l ungs. Consider further evaluation with contrast-enhanced CT for better visualization of adenopathy an d masses. 2. Moderate sized pericardial effusion. Electronically signed by: Yoni Barlow MD 11/29/2020 12:10 AM CDT Due to temporary technical issues with the PACS/Fluency reporting system, reports are being signed by the in house radiologists without review as a courtesy to insure prompt reporting. The interpreting radiologist is fully responsible for the content of the report.
[2020-11-30] MEDS ORDERED: VANCOMYCIN 0.75 GM in NA CHLORIDE 0.9% 150 ML IVPB SCH ×2
== END 2020-11-29 09:51 | disposition short-term general hospital (02) | DRG 871 ==
LOC: ER 21:12 → ERHOLD 11-29 04:09
PROVIDERS: ADMIT Family Medicine; ATTEND Family Medicine
PROC: 0BH17EZ Insertion of Endotracheal Airway into Trachea, Via Natural or Artificial Opening (ICD-10-PCS; principal; 2020-11-29)
PROC: 5A1935Z Respiratory Ventilation, Less than 24 Consecutive Hours (ICD-10-PCS; 2020-11-29)
DX: A41.9 Sepsis, unspecified organism (principal); J96.02 Acute respiratory failure with hypercapnia; J85.0 Gangrene and necrosis of lung; R65.21 Severe sepsis with septic shock; J18.9 Pneumonia, unspecified organism; J96.01 Acute respiratory failure with hypoxia; J90 Pleural effusion, not elsewhere classified; C34.90 Malignant neoplasm of unspecified part of unspecified bronchus or lung; E44.1 Mild protein-calorie malnutrition; Z68.1 Body mass index [BMI] 19.9 or less, adult; E87.2 Acidosis; I48.92 Unspecified atrial flutter; I30.9 Acute pericarditis, unspecified; I48.91 Unspecified atrial fibrillation; F32.9 Major depressive disorder, single episode, unspecified; J43.9 Emphysema, unspecified; M48.00 Spinal stenosis, site unspecified; F17.210 Nicotine dependence, cigarettes, uncomplicated; D63.8 Anemia in other chronic diseases classified elsewhere; Z20.822 Contact with and (suspected) exposure to COVID-19; Z85.3 Personal history of malignant neoplasm of breast
CPT/HCPCS: 31500; 36415; 51702; 71045; 71250; 80048; 80053; 80061; 80076; 81003; 82805; 83605; 83735; 83880; 84145; 84439; 84443; 84484; 85025; 85610; 85730; 86140; 87040; 87070; 87205; 93005; 94002; 94660; 99285; J0696; J1160; J1644; J2185; J2250; J2405; J2543; J2930; J3370; J7030; J7040; J7050; U0003